=== PATIENT | female | born 1980 | race Caucasian/White ===

== ENCOUNTER 2018-11-27 21:52 | Emergency (ER) | payer MEDICAID ==
[~2018-11-27] VITALS: Ht 157.5 cm; Wt 59.9 kg
[2018-11-27 22:27] VITALS: BP 117/75; Ht 157.5 cm; Wt 59.9 kg
== END 2018-11-28 01:05 | disposition home or self-care (01) ==
LOC: ED 21:52
DX: M75.81 Other shoulder lesions, right shoulder (principal)